=== PATIENT | male | born 1940 | race Caucasian/White ===

== ENCOUNTER → 2017-08-27 | Outpatient (CLI) | payer BC, MEDICARE | LOC: COL.VAS 10:18 | DX: I08.8 Other rheumatic multiple valve diseases (principal) ==

== ENCOUNTER → 2019-08-29 | Outpatient (CLI) | payer BC | LOC: COL.VAS 12:03 | DX: I08.0 Rheumatic disorders of both mitral and aortic valves (principal); I51.7 Cardiomegaly ==

== ENCOUNTER 2024-03-11 09:02 | Inpatient (IN) | payer BC ==
[2024-03-11] VITALS (7 sets, daily range): BP systolic 101–138; BP diastolic 47–94; PULSE 50–94; TEMP 96–97.5
[~2024-03-11] VITALS: Ht 167.6 cm; Wt 78.6 kg
[2024-03-11 09:54] LABS: ALBUMIN 4.1 g/dL (3.4-4.8); BILIRUBIN,TOTAL 0.6 mg/dL (0.2-1.2); CALCIUM 9.8 mg/dL (8.4-10.2); CREATININE, serum 1.24 mg/dL (0.72-1.25); POTASSIUM 4.4 mEq/L (3.5-4.5)
[2024-03-11 10:02] LABS: BASO # 0.1 K/mm3 (0.0-0.2); BASO % 0.8 % (0.0-2.0); EOS # 0.3 K/mm3 (0.0-0.7); GRAN # 2.5 K/mm3 (1.4-6.5); GRAN % 38.6 % (42.2-75.2); HEMATOCRIT 44.3 % (42.0-52.0); HEMOGLOBIN 15.1 g/dl (13.5-18.0); LYMPH # 2.9 K/mm3 (1.2-3.4); LYMPH % 43.8 % (20.0-51.0); MEAN CELL VOLUME 90 fl (80.0-100.0); MEAN CORPUSCULAR HEMOGLOBIN 31 pg (27-31); MEAN CORPUSCULAR HGB CONC 34 g/dl (33.0-37.0); MEAN PLATELET VOLUME 9.7 fl (7.4-10.4); MONO # 0.8 K/mm3 (0.1-0.6); MONO % 12.6 % (1.7-9.3); PLATELET COUNT 241 K/mm3 (130-400); RED BLOOD COUNT 4.95 M/mm3 (4.20-5.60); REDCELL DISTRIBUTION WIDTH-CV 13.2 % (11.5-14.5); TROPONIN-I 0.295 ng/mL (0.00-0.033)
[2024-03-11] MEDS ORDERED: Heparin 5,000 UNITS/ML 1 ML VIAL IV ONE (11:15)
[2024-03-11] MEDS ORDERED: Heparin/D5W 250 ML IV SCH ×3 (11:15→14:30)
[2024-03-11] MEDS ORDERED: 1/2 NS 1,000 ML IV SCH ×2 (11:15→14:30)
[2024-03-11] MEDS ORDERED: Heparin 5,000 UNITS/ML 1 ML VIAL IV PRN ×2 (11:15→14:30)
[2024-03-11] MEDS ORDERED: SYNTHROID0.1 MG/TAB PO (11:46)
[2024-03-11] MEDS ORDERED: BONIVA150 MG PO (11:46)
[2024-03-11] MEDS ORDERED: TOPROL XL 25MG25 MG PO (11:46)
[2024-03-11] MEDS ORDERED: LIPITOR20 MG PO (11:47)
[2024-03-11] MEDS ORDERED: VITAMIN D 400400 IU PO (11:48)
[2024-03-11] MEDS ORDERED: MAGNESIUM500 MG PO (11:48)
[2024-03-11] MEDS ORDERED: NITRIC OXIDE PO (11:55)
[2024-03-11] MEDS ORDERED: ASPIRIN E.C. 8181 MG PO (11:58)
[2024-03-11 12:58] LABS: INR 1.1 (0.8-3.0); PROTHROMBIN TIME 12.2 SECONDS (9.7-12.8)
[2024-03-11] MEDS ORDERED: Verapamil 2.5 MG/ML 2 ML VIAL IA SCH (13:04)
[2024-03-11] MEDS ORDERED: Nitroglycerin 100 MCG/ML (Cath Lab) 10 ML VIAL IA SCH (13:05)
[2024-03-11] MEDS ORDERED: Heparin 1,000 UNITS/ML 10 ML Multi-Dose VIAL IA SCH (13:06)
[2024-03-11] MEDS ORDERED: Heparin 1,000 UNITS/ML 10 ML Multi-Dose VIAL IV SCH (13:09)
[2024-03-11 13:10] LABS: PARTIAL THROMBOPLASTIN TIME 35.3 SECONDS (26.0-37.0)
[2024-03-11] MEDS ORDERED: Midazolam 2 MG/2 ML VIAL IV SCH (13:48)
[2024-03-11] MEDS ORDERED: fentaNYL 50 MCG/ML 2 ML VIAL IV SCH (13:49)
--- NOTE | 2024-03-11 14:10 | NUR ---
PATIENT CAME FROM CATHLAB. PATIENT ALERT AND ORIENTED X4. ROOM AIR. TELE ON. PATIENT HAS A RIGHT RADIAL BAND WITH 14CC. PATIENT DENIES PAIN AT THIS TIME.PATIENT ON HEPARIN DRIP.PATIENT PLACED ON POST-OP. WAITING ON TRANSFER BED APPROVAL. AT BEDSIDE. CALL LIGHT WITHIN REACH. BED AT LOWEST POSITION.
--- NOTE | 2024-03-11 14:10 | NUR ---
Please see merge document for record of interventions, vitals and medications administered during left heart cath with Dr. Gtz. Kiel did well during his cath, and is now awake and alert, pwd with reg and unlabored respirations. Denies any cp or other pain at this time. TR band to rt wrist, cms intact distal. Heparin gtt infusing to RAC at 1000 units/hr, with 1/2 ns at 100 cc/hr by dial-a-flow. Joleen, pt's is with him. He is transferred via stretcher up to rm [id number] on medical, bs report to Sona MATIAS.
[2024-03-11] MEDS ORDERED: Iohexol 350 - 100 ML VIAL INCOR ONE (14:27)
[2024-03-11] MEDS ORDERED: *Potassium Replacement Protocol MC SCH (14:30)
[2024-03-11] MEDS ORDERED: Nitroglycerin 0.4 MG/HR DAILY PATCH TD ONE (14:30)
--- NOTE | 2024-03-11 16:42 | NUR ---
PATIENT REPORT CALLED TO NURSE ALF RECEIVING PATIENT.PATIENT BELONGING WERE TAKEN BY . CALL LIGHT WITHIN REACH. BED AT LOWEST POSITION.
[2024-03-11] MEDS ORDERED: Atorvastatin 80 MG TAB PO SCH (21:00)
== END 2024-03-11 16:38 | disposition short-term general hospital (02) | DRG 287 ==
LOC: COL.ER 09:02 → MEDICAL 10:59
PROVIDERS: Personal Emergency Response Attendant; ADMIT Internal Medicine
PROC: B2111ZZ Fluoroscopy of Multiple Coronary Arteries using Low Osmolar Contrast (ICD-10-PCS; principal; 2024-03-11)
PROC: 4A023N7 Measurement of Cardiac Sampling and Pressure, Left Heart, Percutaneous Approach (ICD-10-PCS; 2024-03-11)
DX: I25.10 Atherosclerotic heart disease of native coronary artery without angina pectoris (principal); I10 Essential (primary) hypertension; E78.5 Hyperlipidemia, unspecified; R79.89 Other specified abnormal findings of blood chemistry; E03.9 Hypothyroidism, unspecified; E55.9 Vitamin D deficiency, unspecified; Z95.5 Presence of coronary angioplasty implant and graft; Z79.890 Hormone replacement therapy; Z79.899 Other long term (current) drug therapy; Z79.82 Long term (current) use of aspirin
CPT/HCPCS: C1769; J1644; J2250; J3010; Q9967

== ENCOUNTER 2024-04-04 17:14 | Emergency (ER) | payer MEDICARE, BC ==
[~2024-04-04] VITALS: Ht 180.3 cm; Wt 81.8 kg
[2024-04-04 17:14] VITALS: BP 122/98; PULSE 50
[~2024-04-04 17:14] MED LIST: ASPIRIN E.C. 8181 MG PO; BONIVA150 MG PO; LIPITOR20 MG PO; MAGNESIUM500 MG PO; NITRIC OXIDE PO; SYNTHROID0.1 MG/TAB PO; TOPROL XL 25MG25 MG PO; VITAMIN D 400400 IU PO
[2024-04-04] MEDS ORDERED: EPINEPHrine 1 MG/10 ML (1:10,000) SYRINGE IV ONE ×4 (17:20→17:30)
== END 2024-04-04 20:37 | disposition expired ==
LOC: COL.ER 17:14
DX: I21.9 Acute myocardial infarction, unspecified (principal)
CPT/HCPCS: J0171